=== PATIENT | female | born 1940 | race Caucasian/White ===

== ENCOUNTER → 2017-10-22 | Day surgery (SDC) | payer MEDICARE ==
[2017-10-16 08:58] VITALS: Ht 152.4 cm; Wt 68.2 kg
[~2017-10-22] VITALS: Ht 152.4 cm; Wt 68.2 kg
[~2017-10-22] MED LIST: ASPCH81X PO; ATROPINE SULFATE 0.1 MG/ML 5ML SYR IV PRN; CHOL2000 PO; CITA20TA4 PO; COEN50CA22 PO; EpHEDrine SULFATE INJ 50 MG/ML AMP IV PRN; LEVO25TA5 PO; LIDOCAINE HCL 2% 2 ML VIAL (20MG/ML) ONE; LOSA50TA6 PO; MIDAZOLAM HCL 1 MG/ML 2ML VIAL ONE; MISCCAP80 PO; NAPR1TAB9 PO; ONDANSETRON INJ 2 MG/ML 2 ML VIAL ONE; PROPOFOL IV EMULSION 10 MG/ML 20 ML VIAL IV ONE; SODIUM CHLORIDE 0.9% 500ML 500 ML IV ONE
--- NOTE | 2017-10-22 08:34 | Endo History and Physical ---
History & Physical Date of Service: Oct 22, 2017. Chief Complaint: esophageal dysphagia Referring Physician: Dr. Izabela Sanders History of Present Illness 77 yo with history of Elvis and presents with solid food intermittent dysphagia for EGD. Past Medical History Reflux Past Surgical History Hx Cardiac Surgery: No Hx Internal Defibrillator: No Hx Pacemaker: No Hx Abdominal Surgery: Yes (D&C'S, HYSTERECTOMY, ELSA, HIATAL HERNIA REPAIR) Hx of Implantable Prosthesis: No Hx Post-Op Nausea and Vomiting: No Hx Cancer Surgery: No Hx Thoracic Surgery: No Hx Orthopedic: Yes (RT/LEFT FOOT/TOE SURGERY(HARDWARE PRESENT)) Hx Urinary Tract Surgery: No Family History Colon CA, Esophogeal CA Social History Smoking Status: Former Smoker Hx Substance Use: No Hx Alcohol Use: No Allergies Coded Allergies: Acetaminophen (Verified Adverse Reaction, Unknown, N&V, 10/16/17) Codeine (Verified Adverse Reaction, Unknown, nausea, 10/16/17) Hydrocodone (Verified Adverse Reaction, Unknown, N&V, 10/16/17) Current Medications Reported Home Medications Medications Dose Route/Sig Max Daily Dose Days Date Category Aspirin Chewable (Aspirin) 81 Mg Chew 81 Mg PO QAM 10/16/17 Reported Aleve (Naproxen) 220 Mg Tab 220 Mg PO DIRECTED PRN 10/16/17 Reported Probiotic (Probiotic Product) 1 Cap Cap 1 Cap PO QAM 10/16/17 Reported Coq10 (Coenzyme Q10 (Ubidecarenone)) 50 Mg Cap 1 Cap PO QAM 10/16/17 Reported Vitamin D3 (Cholecalciferol) 2,000 Unit Cap 1 Cap PO QAM 10/16/17 Reported Levothyroxine Sodium 25 Mcg Tab 1 Tab PO QAM 10/16/17 Reported Citalopram Hydrobromide 20 Mg Tab 1 Tab PO QAM 10/16/17 Reported Cozaar (Losartan Potassium) 50 Mg Tab 50 Mg PO QAM 10/16/17 Reported Vital Signs Weight (Kilograms): 68.18 Height (Feet): 5 Height (Inches): 0 Date Time Temp Pulse Resp B/P (MAP) Pulse Ox O2 Delivery O2 Flow Rate FiO2 10/22/17 08:27 36.7 61 18 161/88 (112) 96 Room Air Physical Exam General Appearance: WD/WN, no apparent distress Respiratory/Chest: Respiratory effort: no dyspnea Auscultation: breath sounds normal Cardiovascular: Apical Impulse: not displaced Heart Auscultation: RRR, normal S1, normal S2 Abdomen: Bowel Sounds: normal Inspection & Palpation: soft, non-distended Assessment and Plan 77 yo presents for EGD for dysphagia
--- NOTE | 2017-10-22 08:56 | GI REPORT ---
Procedure Date: 10/22/2017 8:42 AM Procedure: Upper GI endoscopy Indications: Dysphagia Medicines: Monitored Anesthesia Care Complications: No immediate complications. Estimated blood loss: None. Estimated Blood Loss: Estimated blood loss: none. Procedure: Pre-Anesthesia Assessment: - Pre-Anesthesia Assessment: - Prior to the procedure, a History and Physical was performed, and patient medications, allergies and sensitivities were reviewed. The patient's tolerance of previous anesthesia was reviewed. Please see [facility] for complete details. - The risks and benefits of the procedure and the sedation options and risks were discussed with the patient. All questions were answered and informed consent was obtained. - Patient identification and proposed procedure were verified prior to the procedure by the physician and the nurse. The procedure was verified in the pre-procedure area in the procedure room. After obtaining informed consent, the endoscope was passed carefully and meticuously under direct vision and only advanced when the lumen was clearly identified, C02 insuflation was utilized throughout the entirity of the procedure. Throughout the procedure, the patient's blood pressure, pulse, and oxygen saturations were monitored continuously. After obtaining informed consent, the endoscope was passed under direct vision. Throughout the procedure, the patient's blood pressure, pulse, and oxygen saturations were monitored continuously. The On-site loaner was introduced through the mouth, and advanced to the second part of duodenum. The upper GI endoscopy was accomplished without difficulty. The patient tolerated the procedure well. Findings: A small hiatal hernia was present. The lower third of the esophagus was tortuous. A TTS dilator was passed through the scope. Dilation with a 12-13.5-15 mm balloon dilator was performed to 15 mm. The dilation site was examined and showed mild improvement in luminal narrowing. The entire examined stomach was normal. The examined duodenum was normal. Impression: - Small hiatal hernia. - Tortuous esophagus. - Normal stomach. - Normal examined duodenum. - No specimens collected. Recommendation: - Discharge patient to home (with escort). - Return to referring physician. - Dysphagia may be more of a motility/tortuous anatomy eitology. The patient reported Elvis History was not obvious - Continue present medications. Glen Bennett MD 10/22/2017 8:56:15 AM This report has been signed electronically. Note Initiated On: 10/22/2017 8:42 AM I attest to the content of the Intraoperative Record and orders documented therein, exceptions below
--- NOTE | 2017-10-22 09:02 | Discharge Instructions ---
Endoscopy Patient Instructions Date / Procedure(s) Performed Oct 22, 2017. EGD Allergy Information Coded Allergies: Acetaminophen (Verified Adverse Reaction, Unknown, N&V, 10/16/17) Codeine (Verified Adverse Reaction, Unknown, nausea, 10/16/17) Hydrocodone (Verified Adverse Reaction, Unknown, N&V, 10/16/17) Discharge Date / Findings Oct 22, 2017. Mildly tortuous esophagus Dilation performed Swallowing issues may be post surgery related, motility related, or age related. No worrisome findings such as mass or inflammation Continue current medications Medication Instructions Stopped Medication(s): Patient was told to take 3 pills this am but she didn't take anything yet. Provider Instructions Activity Restrictions - No exercising or heavy lifting for 24 hours. - Do not drink alcohol the day of the procedure. - Do not drive a car or operate machinery until the day after the procedure. - Do not make any important decisions or sign important papers in 24 hours after the procedure. Following Day: - Return to full activity which may include returning to work/school. Diet Start your diet with liquids and light foods (jello, soup, juice, toast). Then eat your usual diet if not nauseated. Treatment For Common After Affects For mild abdominal pain, bloating, or excessive gas: - Rest - Eat lightly - Lie on right side Follow-Up Information Follow-up with Dr. Izabela Sanders as scheduled Anesthesia Information What You Should Know You have had a procedure that required some medicine to reduce anxiety and discomfort. This treatment is called moderate sedation. After receiving the treatment, you may be sleepy, but you will be able to breathe on your own. The effects of the treatment may last for several hours. Follow these instructions along with Activity/Diet recommendations noted above: * Do NOT do anything where dizziness or clumsiness would be dangerous. * Rest quietly at home today, then you can be up and about tomorrow. * Have a responsible person stay with you the rest of today. * You may have had an I.V. today. If so, you may take the dressing off later today. Recommendations Call your doctor if: * Trouble breathing * Continuous vomiting for more than 24 hours * Temperature above 101 degrees * Severe abdominal pain or bloating * Pain not relieved by pain medicine ordered * There is increased drainage or redness from any incision * A large amount of rectal bleeding greater than 2-3 tablespoons. (If you had a polyp/s removed or have hemorrhoids, a small amount of blood - from the rectum is to be expected.) * You have any unanswered questions or concerns. IN THE EVENT OF A SERIOUS EMERGENCY, GO TO THE NEAREST EMERGENCY ROOM Your discharge instructions were prepared by provider Glen Bennett. Patient Instructions Signature Page Catarinalisa Flanneryis Patient (or Guardian) Signature/Date: I have read and understand the instructions given to me by my caregivers. Caregiver/RN/Doctor Signature/Date: The above-named patient and/or guardian has received patient instructions on this date. + Original Patient Signature Page (only) stays with chart. Please make copy for patient.
[2017-10-22 09:25] VITALS: BP 140/68; PULSE 59; O2SAT 97
--- NOTE | 2017-10-22 09:35 | Anesthesiology Progress Note ---
Anesthesia Post Op Note Date & Time Oct 22, 2017 at 09:34 Vital Signs Pain Intensity: 0 Vital Signs Past 12 Hours Date Time Temp Pulse Resp B/P (MAP) Pulse Ox O2 Delivery O2 Flow Rate FiO2 10/22/17 09:25 59 18 140/68 (92) 97 Room Air 10/22/17 09:15 56 18 125/71 (89) 96 Room Air 10/22/17 09:02 36.5 59 18 112/55 (74) 96 Room Air 10/22/17 08:27 36.7 61 18 161/88 (112) 96 Room Air Notes Mental Status: alert / awake / arousable, participated in evaluation Pt Amnestic to Procedure: Yes Nausea / Vomiting: adequately controlled Pain: adequately controlled Airway Patency, RR, SpO2: stable & adequate BP & HR: stable & adequate Hydration State: stable & adequate Anesthetic Complications: no major complications apparent
== END | disposition home or self-care (01) ==
LOC: C.GI 07:36
PROVIDERS: ATTEND Internal Medicine
DX: R13.10 Dysphagia, unspecified (principal); K44.9 Diaphragmatic hernia without obstruction or gangrene; I10 Essential (primary) hypertension; F32.9 Major depressive disorder, single episode, unspecified; E03.9 Hypothyroidism, unspecified; Z90.710 Acquired absence of both cervix and uterus; Z90.49 Acquired absence of other specified parts of digestive tract; Z98.890 Other specified postprocedural states; Z79.82 Long term (current) use of aspirin; Z88.6 Allergy status to analgesic agent; K22.8 Other specified diseases of esophagus; Z79.899 Other long term (current) drug therapy; Z86.711 Personal history of pulmonary embolism; Z87.891 Personal history of nicotine dependence; Z80.0 Family history of malignant neoplasm of digestive organs

== ENCOUNTER → 2018-03-05 | Day surgery (SDC) | payer MEDICARE ==
[2018-02-19 11:15] VITALS: Ht 151.1 cm; Wt 69.5 kg
[~2018-03-05] VITALS: Ht 151.1 cm; Wt 69.5 kg
[~2018-03-05] MED LIST changes: +ACETAMINOPHEN 325 MG TAB PO PRN; +EpINEphrine INJ 1MG/ML AMP 1 MG/ML AMP ONE; +LACTATED RINGER'S 1000ML 500 ML IV SCH; +LIDOCAINE 3.5% OPH GEL PER APPLICATION CHARGE ONE; +LIDOCAINE HCL 1% MPF 2 ML VIAL ONE; -LIDOCAINE HCL 2% 2 ML VIAL (20MG/ML) ONE; -ONDANSETRON INJ 2 MG/ML 2 ML VIAL ONE; +POVIDONE-IODINE OP SOLN 30 ML BTL ONE; +PROPARACAINE 0.5% OP SOLN PER DROP CHARGE OPR SCH; -PROPOFOL IV EMULSION 10 MG/ML 20 ML VIAL IV ONE; -SODIUM CHLORIDE 0.9% 500ML 500 ML IV ONE; +TOBRAMYCIN/DEXAMETHASONE OPH OINT PER APPLN CHARGE ONE
[2018-03-05] MEDS: PHENYLEPHRINE HCL 2.5% OP SOLN PER DROP CHARGE OPR SCH ×2 (08:51→08:56)
[2018-03-05] MEDS: TROPICAMIDE 1% OP SOLN PER DROP CHARGE OPR SCH ×2 (08:52→08:57)
[2018-03-05] MEDS: CYCLOPENTOLATE HCL 1% OP SOLN PER DROP CHARGE OPR SCH ×2 (08:53→08:58)
[2018-03-05] MEDS: GATIFLOXACIN OP SOLN PER DROP CHARGE OPR SCH ×2 (08:55→09:05)
[2018-03-05] MEDS: KETOROLAC 0.5% OP SOLN PER DROP CHARGE OPR SCH ×2 (08:59→09:56)
--- NOTE | 2018-03-05 09:15 | History & Physical Bridge - [place] ---
H&P Re-Evaluation Bridge Note: I have examined the patient, reviewed the History & Physical and in the interval since the performance of the History & Physical I have noted the following changes of clinical significance: No changes noted
--- NOTE | 2018-03-05 10:02 | [facility] Operative Report ---
Operative Report Date of Service Mar 05, 2018. Operative Report 1. PREOPERATIVE DIAGNOSIS: Cataract of the right eye. 2. POSTOPERATIVE DIAGNOSIS: Same. 3. PROCEDURE: Phacoemulsification with intraocular lens implantation of the right eye. SURGEON: Dr. West Camejo. ANESTHESIA: Topical Lidocaine gel, 1% Non- Preserved intracameral Lidocaine, and monitored intravenous sedation. INDICATIONS FOR THE PROCEDURE: The patient is a 77 - year-old female with a history of cataract of the right eye causing significant visual impairment. The details of the proposed procedure were explained to the patient who asked appropriate questions and following discussion of all risks, benefits and alternatives agreed to have the procedure done. 4. OPERATION AND FINDINGS: DESCRIPTION OF PROCEDURE: After informed consent was obtained, the patient was brought to the Operating Room at the [facility]. The patient was placed in a supine position and then the right eye was prepped and draped in the usual sterile fashion for intraocular surgery. A drop of topical Lidocaine gel was placed in the operative eye. A wire lid speculum was then placed in the fornices. A corneal paracentesis was then created temporally. The Non-Preserved Lidocaine was then instilled into the anterior chamber. The anterior chamber was then pressurized with viscoelastic. A 2.0 mm clear corneal incision was then created temporally. A cystotome was inserted into the anterior chamber and used to create a tear in the anterior lens capsule. This capsular tear was then used to create a small flap and the flap was dragged in a counterclockwise direction in order to create a continuous curvilinear capsulorrhexis. Hydrodissection was accomplished with balanced salt solution. Phacoemulsification of the lens nucleus was then performed in a standard [id number] technique. The phaco time was 17 seconds with an average power of 14 %. The remaining cortical material was removed using irrigation aspiration. The capsular bag was then filled with viscoelastic. A [employer] Lomb MI60L +22.5 diopters lens was then loaded into the injector and injected into the capsular bag. The remaining viscoelastic was removed with the irrigation aspiration handpiece. The wound was hydrated and then checked and found to be watertight. The intraocular pressure was checked and found to be adequate. The wire lid speculum was removed and the patient's face was cleaned and dried. TobraDex ointment was placed in the inferior fornix. The patient was discharged to the Recovery Room having tolerated the procedure well. There were no complications. The patient will be seen tomorrow in the office for follow-up. I attest to the content of the Intraoperative Record and any orders documented therein. Any exceptions are noted below.
--- NOTE | 2018-03-05 10:02 | Discharge Instructions-SurgCtr ---
Discharge Instructions Date of Service Mar 05, 2018. Visit Reason for Visit: Cataract Right Eye Discharge Discharge Diagnosis / Problem: cataract Discharge Goals Goal(s): Improve function Activity Recommendations Activity Limitations: per Instructions/Follow-up section Anesthesia . Post Anesthesia Instructions: If you have had General Anesthesia or IV Sedation: * Do not drive today. * Resume driving when surgeon permits. * Do not make important decisions or sign legal documents today. * Call surgeon for: 1. Temperature elevations greater than 101 degrees F. 2. Uncontrollable pain. 3. Excessive bleeding. 4. Persistent nausea and vomiting. 5. Medication intolerance (nausea, vomiting or rash). * For nausea and vomiting use only clear liquids such as: tea, soda, bouillon until nausea subsides, then gradually increase diet as tolerated. * If you have any concerns or questions, call your surgeon's office. If physician is unavailable and it is an emergency, call 911 or go to the nearest emergency room. . Diet Recommendations Home Diet: resume previous diet Procedures Procedures Performed: Right Cataract Phacoemulsification With Intraocular Lens Implant Pending Studies Studies pending at discharge: no Medical Emergencies . Who to Call and When: Medical Emergencies: If at any time you feel your situation is an emergency, please call 911 immediately. . Non-Emergent Contact Non-Emergency issues call your: Vocational Training Instructor . . "Provider Documentation" section prepared by West Camejo. .
[2018-03-05 10:09] VITALS: TEMP 36.3
--- NOTE | 2018-03-05 10:10 | Anesthesia Progress Nt - [facility] ---
Anesthesia Post Op Note Date & Time Mar 05, 2018 at 10:10 Vital Signs Pain Intensity: 0 Vital Signs Past 12 Hours Date Time Temp Pulse Resp B/P (MAP) Pulse Ox O2 Delivery O2 Flow Rate FiO2 03/05/18 08:40 36.7 65 16 142/92 (109) 96 Room Air Notes Mental Status: alert / awake / arousable, participated in evaluation Pt Amnestic to Procedure: Yes Nausea / Vomiting: adequately controlled Pain: adequately controlled Airway Patency, RR, SpO2: stable & adequate BP & HR: stable & adequate Hydration State: stable & adequate Anesthetic Complications: no major complications apparent
[2018-03-05 10:40] VITALS: BP 125/73; PULSE 67; O2SAT 97
== END | disposition home or self-care (01) ==
LOC: X.SURG 08:08
PROVIDERS: ATTEND Ophthalmology
DX: H26.9 Unspecified cataract (principal); I10 Essential (primary) hypertension; M19.90 Unspecified osteoarthritis, unspecified site; Z98.42 Cataract extraction status, left eye; Z79.82 Long term (current) use of aspirin; Z79.899 Other long term (current) drug therapy; Z88.5 Allergy status to narcotic agent; Z86.711 Personal history of pulmonary embolism; Z87.891 Personal history of nicotine dependence

== ENCOUNTER → 2018-03-12 | Outpatient (CLI) | payer MEDICARE ==
[~2018-03-12] MED LIST changes: -ACETAMINOPHEN 325 MG TAB PO PRN; -ATROPINE SULFATE 0.1 MG/ML 5ML SYR IV PRN; -EpHEDrine SULFATE INJ 50 MG/ML AMP IV PRN; -EpINEphrine INJ 1MG/ML AMP 1 MG/ML AMP ONE; -LACTATED RINGER'S 1000ML 500 ML IV SCH; -LIDOCAINE 3.5% OPH GEL PER APPLICATION CHARGE ONE; -LIDOCAINE HCL 1% MPF 2 ML VIAL ONE; -MIDAZOLAM HCL 1 MG/ML 2ML VIAL ONE; -POVIDONE-IODINE OP SOLN 30 ML BTL ONE; -PROPARACAINE 0.5% OP SOLN PER DROP CHARGE OPR SCH; -TOBRAMYCIN/DEXAMETHASONE OPH OINT PER APPLN CHARGE ONE
--- NOTE | 2018-03-12 09:10 | DIAGNOSTIC IMAGING REPORT ---
GI SERIES W/AIR ROUTINE CLINICAL HISTORY: 77 years-old Female presenting with S/P GASTRIC SURGERY. TECHNIQUE: A standard air contrast upper GI series was performed. Spot images of the esophagus and stomach were obtained in multiple obliquities both upright and prone. COMPARISON: 08/07/2016. FINDINGS: The patient swallowed barium without difficulty. The esophagus is structurally normal without evidence of intrinsic or extrinsic mass. The esophageal mucosal pattern is normal. Esophageal dysmotility evidenced by tertiary contractions. Significant gastroesophageal reflux was elicited by having the patient perform the Valsalva maneuver. The gastroesophageal junction was located above the diaphragm with a recurrent small hiatal hernia evident. The stomach is otherwise normal in configuration and demonstrates normal distensibility. No mass or ulceration is identified. There was no evidence of gastritis. The duodenal bulb and sweep are unremarkable. Fluoroscopy dosage (mGy): Not available. Fluoroscopy time: 1.5 minutes. Number or time of fluoroscopic spot images: 25. IMPRESSION: 1. Recurrent small hiatal hernia. 2. Significant gastroesophageal reflux. 3. 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 Electronically signed by: Souleymane Palomino M.D. 03/12/2018 9:08 AM Dictated Date/Time: 03/12/2018 9:07 AM
== END | disposition home or self-care (01) ==
LOC: C.RAD 08:09
PROVIDERS: ATTEND Surgery
DX: Z98.890 Other specified postprocedural states (principal); K21.9 Gastro-esophageal reflux disease without esophagitis; K22.4 Dyskinesia of esophagus; K44.9 Diaphragmatic hernia without obstruction or gangrene

== ENCOUNTER 2022-10-05 16:09 | Observation (INO) ==
--- NOTE | 2022-10-05 16:42 | Emergency Department Note ---
Impression & Plan Chest pain, Abnormal EKG ED Provider Note NAME: YESSICA NAVA AGE: 82 SEX: F : 1940 ARRIVES VIA: Ambulance INFORMANT: Patient, the patient's family member ED PROVIDER(S): Álvaro Hennessy DO CHIEF COMPLAINT: Chest pain HPI: The patient is an 82-year-old female who does have a history of esophageal problems but also has a history of hypertension. The patient presented to the emergency department for an evaluation of chest pain. The patient was at her primary care physician's office today when she developed chest pain. Upon furt her questioning the patient admitted that she was having chest pain rating to her shoulder which she describes as a sharp squeezing pain. The patient's had ongoing symptoms frequently. This is the first time the family member was made aware of it. The patient was given aspirin and nitroglycerin with relief of her pain and then she was sent to the emergency department for further evaluation as well as possible admission. ROS: See above HPI for pertinent positives & negatives. A total of 10 systems reviewed and were otherwise negative. PAST MEDICAL HISTORY: See Below PAST SURGICAL HISTORY: See Below FAMILY HISTORY: See Below SOCIAL HISTORY: See Below HOME MEDICATIONS: See Below ALLERGIES: See Below VITALS: See Below PHYSICAL EXAMINATION: GENERAL: Patient is awake alert in no acute distress patient is resting comfortably and showing no signs of anxiety EYES: The conjunctivae are clear. The pupils are round and reactive. EARS, NOSE, MOUTH AND THROAT: The nose is without any evidence of any deformity. NECK: The neck is nontender and supple. RESPIRATORY: Normal respiratory effort is noted there is no evidence of wheezing rhonchi or rales CARDIOVASCULAR: Regular rate and rhythm noted there no murmurs rubs or gallops normal S1 normal S2. GASTROINTESTINAL: The abdomen is soft. Abdomen is nontender. MUSCULOSKELETAL/EXTREMITIES: There is no evidence of gross deformity full range of motion is noted in the hips and shoulders. SKIN: There is no obvious evidence of any rash. There are no petechiae, pallor or cyanosis noted. NEUROLOGIC: Patient is awake alert and oriented x3 MEDICAL DECISION MAKING: The patient is an 82-year-old female who presented to the emergency department directly from her doctor's office for an evaluation of chest pain. The patient noticed epigastric and lower chest pain which is very tight and radiates to her left shoulder. This was thought to be consistent with unstable angina according to the note from the doctor's office. She was treated with aspirin and nitroglycerin. She was feeling much better on reevaluation. The patient was sent to the emergency department specifically for further evaluation as well as possible inpatient management. I discussed the patient's laboratory and radiographic studies with her and her daughter. I discussed the limitations of the emergency department work-up for chest pain with him. Given her age and comorbidities I do feel the patient may be a better candidate for inpatient management and work-up. For this reason I [facility] have agreed to evaluate the patient in the emergency department for further management and disposition. Triage Nursing notes reviewed. Prior medical records reviewed Vital Signs: reviewed and remarkable for elevated blood pressure and bradycardia. Differential diagnosis: Cardiac ischemia, aortic dissection, pulmonary embolism, pneumothorax, pneumonia, pericarditis, myocarditis, esophageal rupture, GERD, cholecystitis, pancreatitis, musculoskeletal, as well as other pathologies. ER treatment provided: See below Diagnostics interpreted by me: ECG: EKG was obtained in the emergency department. My interpretation is sinus bradycardia 56 bpm. There is no ectopy. There is no acute ST segment abnormalities noted. This was compared to a tracing from February 04, 2020. No changes were noted There is an EKG that accompanied the patient. This was from the office. My interpretation is normal sinus rhythm at 60 bpm. There is no ectopy. There was ST segment depressions noted in the inferior and lateral leads. The ST segment depression was new compared to the previous tracing. A prehospital EKG was also reviewed. My interpretation is sinus rhythm at 60 bpm. There is no ectopy. There was still persistent ST depressions noted in the lower lateral leads otherwise no change from previous. Cardiac Monitoring: An order was placed for continuous cardiac monitoring. The monitor shows a rate of 57 bpm with sinus bradycardia. Laboratory studies: As stated above and show below. Imaging studies: See below. Radiographic imaging was reviewed by myself Consultation(s): I discussed this case with Irena who [facility] Past Med/Surg History Medical History (Updated 10/05/22 @ 19:14 by Roxy Martin PA-C) Degenerative arthritis of knee, bilateral Depression Dysphagia GERD (gastroesophageal reflux disease) hx-not since lap elvis Hammer toes of both feet no sx. 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 "don't have this anymore since I had the teeth pulled on the bottom." no locking Surgical History H/O foot surgery R/L History of bunionectomy History of carpal tunnel release left History of cataract surgery bilat History of cholecystectomy History of colonoscopy History of dilatation and curettage X MULTIPLE History of esophagogastroduodenoscopy (EGD) X MULTIPLE History of hysterectomy TOTAL History of tooth extraction 2 dental implants bottom Pilonidal cyst REMOVAL Status post laparoscopic Elvis fundoplication Family History Aunt Esophageal cancer Grandmother (Maternal) Diabetes Social History Smoking Status: Former smoker Second Hand Exposure: No; Hx Alcohol Use: Yes Alcohol type: other Hx Substance Use: No Preferred Language: Kiswahili Communication Ability: Effective Analyst Microbiology Lab Required: No Beliefs That Will Affect Care: None Current Living Situation: Alone Feels Safe at Home: Yes Assistive Devices: None Allergies Allergies Allergy/AdvReac Type Severity Reaction Status Date / Time codeine AdvReac Unknown nausea Verified 10/05/22 18:55 hydrocodone AdvReac Unknown N&V Verified 10/05/22 18:55 prednisone AdvReac Unknown Gastrointestinal Verified 10/05/22 18:55 Upset tramadol AdvReac Unknown Nausea Verified 10/05/22 18:55 Home Meds Home Medications Medication Instructions Recorded Confirmed amlodipine 2.5 mg tablet 2.5 mg PO HS 05/27/19 10/05/22 cholecalciferol (vitamin D3) 50 2,000 unit PO QAM 05/27/19 10/05/22 mcg (2,000 unit) capsule (Vitamin D3) coQ10 (ubiquinol) 100 mg capsule 100 mg PO QAM 05/27/19 10/05/22 dicyclomine 10 mg capsule 10 mg PO QID PRN Abdominal Pain 05/27/19 10/05/22 docusate sodium 100 mg capsule 100 mg PO BID 05/27/19 10/05/22 (Stool Softener) levothyroxine 25 mcg capsule 25 - 50 mcg PO QAM 05/27/19 10/05/22 citalopram 10 mg tablet 10 mg PO QAM 12/31/20 10/05/22 cyanocobalamin (vitamin B-12) 250 250 mcg PO QAM 12/31/20 10/05/22 mcg tablet losartan 25 mg tablet 25 mg PO DAILY 10/05/22 10/05/22 ondansetron 4 mg disintegrating 4 mg PO Q6H PRN Nausea 10/05/22 10/05/22 tablet polyethylene glycol 3350 17 17 g PO DAILY 10/05/22 10/05/22 gram/dose oral powder (Miralax) simethicone 40 mg/0.6 mL oral See Rx Instructions .Route .COMPLEX 10/05/22 10/05/22 drops,suspension vitamins A and D 1 cap PO DAILY 10/05/22 10/05/22 Results & Data (ED) Vital Signs Vital Signs - 24 hr 10/05/22 16:14 10/05/22 16:21 10/05/22 16:21 Temperature 36.5 C Temperature Source Oral Pulse Rate 56 L Pulse Rate [Apical] 55 L Pulse Rate from SpO2 Sensor Pulse Rhythm Regular Pulse Rhythm [Apical] Regular Pulse Strength Normal Pulse Strength [Apical] Normal Respiratory Rate 21 17 Respiratory Effort / Characteristics Non-Labored Non-Labored Respiratory Depth Normal Normal Respiratory Pattern Regular Regular Blood Pressure 133/81 Blood Pressure [Right Arm] 133/81 Blood Pressure Mean 98 Blood Pressure Mean [Right Arm] 98 Pulse Oximetry 97 97 Oxygen Delivery Method Room Air Room Air Room Air Oxygen Flow Rate 96 Sepsis Recent Fever Within 48 Hours No Sepsis New/Unexplained Change in Mental Status N/A Sepsis Action Taken by Nursing No Action Required 10/05/22 16:29 10/05/22 16:54 10/05/22 16:27 Temperature Temperature Source Pulse Rate 53 L 53 L Pulse Rate [Apical] Pulse Rate from SpO2 Sensor 53 L Pulse Rhythm Pulse Rhythm [Apical] Pulse Strength Pulse Strength [Apical] Respiratory Rate 17 Respiratory Effort / Characteristics Respiratory Depth Respiratory Pattern Blood Pressure Blood Pressure [Right Arm] Blood Pressure Mean Blood Pressure Mean [Right Arm] Pulse Oximetry 94 Oxygen Delivery Method Room Air Oxygen Flow Rate 97 Sepsis Recent Fever Within 48 Hours Sepsis New/Unexplained Change in Mental Status Sepsis Action Taken by Nursing 10/05/22 16:30 10/05/22 16:30 10/05/22 17:00 Temperature Temperature Source Pulse Rate 55 L Pulse Rate [Apical] Pulse Rate from SpO2 Sensor 54 L Pulse Rhythm Pulse Rhythm [Apical] Pulse Strength Pulse Strength [Apical] Respiratory Rate 21 Respiratory Effort / Characteristics Respiratory Depth Respiratory Pattern Blood Pressure 123/66 130/68 Blood Pressure [Right Arm] Blood Pressure Mean 85 88 Blood Pressure Mean [Right Arm] Pulse Oximetry 96 Oxygen Delivery Method Oxygen Flow Rate Sepsis Recent Fever Within 48 Hours Sepsis New/Unexplained Change in Mental Status Sepsis Action Taken by Nursing 10/05/22 17:00 10/05/22 17:30 10/05/22 17:30 Temperature Temperature Source Pulse Rate 50 L 50 L Pulse Rate [Apical] Pulse Rate from SpO2 Sensor 50 L 50 L Pulse Rhythm Pulse Rhythm [Apical] Pulse Strength Pulse Strength [Apical] Respiratory Rate 17 16 Respiratory Effort / Characteristics Respiratory Depth Respiratory Pattern Blood Pressure 125/66 Blood Pressure [Right Arm] Blood Pressure Mean 85 Blood Pressure Mean [Right Arm] Pulse Oximetry 98 98 Oxygen Delivery Method Oxygen Flow Rate Sepsis Recent Fever Within 48 Hours Sepsis New/Unexplained Change in Mental Status Sepsis Action Taken by Nursing 10/05/22 18:00 10/05/22 18:00 10/05/22 18:38 Temperature Temperature Source Pulse Rate 54 L Pulse Rate [Apical] Pulse Rate from SpO2 Sensor 54 L 54 L Pulse Rhythm Pulse Rhythm [Apical] Pulse Strength Pulse Strength [Apical] Respiratory Rate 20 Respiratory Effort / Characteristics Respiratory Depth Respiratory Pattern Blood Pressure 132/65 Blood Pressure [Right Arm] Blood Pressure Mean 87 Blood Pressure Mean [Right Arm] Pulse Oximetry 98 96 Oxygen Delivery Method Oxygen Flow Rate Sepsis Recent Fever Within 48 Hours Sepsis New/Unexplained Change in Mental Status Sepsis Action Taken by Nursing 10/05/22 19:00 Temperature Temperature Source Pulse Rate Pulse Rate [Apical] Pulse Rate from SpO2 Sensor 54 L Pulse Rhythm Pulse Rhythm [Apical] Pulse Strength Pulse Strength [Apical] Respiratory Rate Respiratory Effort / Characteristics Respiratory Depth Respiratory Pattern Blood Pressure Blood Pressure [Right Arm] Blood Pressure Mean Blood Pressure Mean [Right Arm] Pulse Oximetry 98 Oxygen Delivery Method Oxygen Flow Rate Sepsis Recent Fever Within 48 Hours Sepsis New/Unexplained Change in Mental Status Sepsis Action Taken by [facility] Medications Current Medication List: was personally reviewed by me Laboratory Data Attestation: I reviewed the patient's lab results. 10/05/22 16:16 10/05/22 16:16 Lab Results 10/05/22 10/05/22 10/05/22 Range/Units 16:16 16:16 16:16 WBC 6.52 (4.8-10.8) K/ul RBC 4.37 (4.20-5.40) M/uL Hgb 13.3 (12.0-16.0) g/dl Hct 39.6 (37.0-47.0) % MCV 90.6 (80.0-100.0) fL MCH 30.4 (25.0-34.0) pg MCHC 33.6 (32.0-36.0) g/dL RDW Std Deviation 43.2 (36.4-46.3) fL RDW Coeff of Tangela 13.2 (11.5-14.5) % Plt Count 227 (130-400) K/uL MPV 10.0 (9.4-12.4) fL Immature Gran % (Auto) 0.2 % Neut % (Auto) 47.2 % Lymph % (Auto) 38.2 % Prentiss % (Auto) 10.3 % Eos % (Auto) 2.9 % Baso % (Auto) 1.2 % Neut # (Auto) 3.08 (1.40-6.50) K/uL Lymph # (Auto) 2.49 (1.2-3.4) K/uL Prentiss # (Auto) 0.67 H (0.11-0.59) K/uL Eos # (Auto) 0.19 (0-0.50) K/uL Baso # (Auto) 0.08 (0-0.2) K/uL Immature Gran # (Auto) 0.01 (0.01-0.20) K/uL PT 10.8 (9.0-12.0) Seconds INR 1.0 (0.9-1.1) APTT 25.3 (21.0-31.0) Seconds PTT Ratio 0.9 Sodium 139 (136-145) mmol/L Potassium 4.1 (3.5-5.1) mmol/L Chloride 105 (98-107) mmol/L Carbon Dioxide 27 (21-32) mmol/L Anion Gap 7 (3-11) BUN 13 (6-23) mg/dl Creatinine 0.95 (0.6-1.2) mg/dl Est Cr Clr Drug Dosing 37.3 ml/min Est GFR ( Amer) 64.2 ml/min Est GFR (Non-Af Amer) 55.4 ml/min BUN/Creatinine Ratio 13.7 (10-20) Glucose 100 H (70-99(Fasting)) mg/dl Calcium 8.7 (8.5-10.1) mg/dl Total Bilirubin 0.4 (0.2-1.0) mg/dl AST 18 (13-39) U/L ALT 13 (7-52) U/L Alkaline Phosphatase 77 (34-104) U/L Troponin I High Sens 3.9 (0-14) pg/ml Total Protein 6.7 (6.0-8.3) gm/dl Albumin 3.9 (3.4-5.0) gm/dl Globulin 2.8 (2.5-4.0) gm/dl Albumin/Globulin Ratio 1.4 (0.9-2) Lipase 11 (11-82) U/L SARS-CoV-2, RNA, NAAT (NEGATIVE) 10/05/22 Range/Units 16:56 WBC (4.8-10.8) K/ul RBC (4.20-5.40) M/uL Hgb (12.0-16.0) g/dl Hct (37.0-47.0) % MCV (80.0-100.0) fL MCH (25.0-34.0) pg MCHC (32.0-36.0) g/dL RDW Std Deviation (36.4-46.3) fL RDW Coeff of Tangela (11.5-14.5) % Plt Count (130-400) K/uL MPV (9.4-12.4) fL Immature Gran % (Auto) % Neut % (Auto) % Lymph % (Auto) % Prentiss % (Auto) % Eos % (Auto) % Baso % (Auto) % Neut # (Auto) (1.40-6.50) K/uL Lymph # (Auto) (1.2-3.4) K/uL Prentiss # (Auto) (0.11-0.59) K/uL Eos # (Auto) (0-0.50) K/uL Baso # (Auto) (0-0.2) K/uL Immature Gran # (Auto) (0.01-0.20) K/uL PT (9.0-12.0) Seconds INR (0.9-1.1) APTT (21.0-31.0) Seconds PTT Ratio Sodium (136-145) mmol/L Potassium (3.5-5.1) mmol/L Chloride (98-107) mmol/L Carbon Dioxide (21-32) mmol/L Anion Gap (3-11) BUN (6-23) mg/dl Creatinine (0.6-1.2) mg/dl Est Cr Clr Drug Dosing ml/min Est GFR ( Amer) ml/min Est GFR (Non-Af Amer) ml/min BUN/Creatinine Ratio (10-20) Glucose (70-99(Fasting)) mg/dl Calcium (8.5-10.1) mg/dl Total Bilirubin (0.2-1.0) mg/dl AST (13-39) U/L ALT (7-52) U/L Alkaline Phosphatase (34-104) U/L Troponin I High Sens (0-14) pg/ml Total Protein (6.0-8.3) gm/dl Albumin (3.4-5.0) gm/dl Globulin (2.5-4.0) gm/dl Albumin/Globulin Ratio (0.9-2) Lipase (11-82) U/L SARS-CoV-2, RNA, NAAT NEGATIVE (NEGATIVE) Administered Medications Amlodipine Besylate (Amlodipine Besylate 5 Mg Tab) 2.5 mg PO HS SISI Stop: 11/04/22 20:59 Last Admin: 10/05/22 22:04 Dose: 2.5 mg Documented By: CR Docusate Sodium (Docusate Sodium 100 Mg Cap) 100 mg PO BID SISI Stop: 11/04/22 20:59 Last Admin: 10/05/22 22:04 Dose: 100 mg Documented By: CR Heparin Sodium (Porcine) (Heparin Sod 5,000 Unit/0.5 Ml Vial) 5,000 units SQ Q12 SISI Stop: 11/04/22 20:59 Last Admin: 10/05/22 22:04 Dose: 5,000 units Documented By: CR Imaging Data Attestation: I personally reviewed and interpreted this imaging study as follows: My Impression: 1 view chest x-ray was obtained in the emergency department. My interpretation is no free air, no definite for trait, see report below Radiologist's Impression: Chest X-Ray 10/05/22 16:31 XR chest 1V portable HISTORY: 82 years-old Female Chest pain, nonspecific acute chest pain COMPARISON: 06/30/2011 TECHNIQUE: AP view of the chest FINDINGS: Cardiac mediastinal and hilar silhouettes are unchanged. No pneumothorax, pleural effusion, airspace consolidation or overt pulmonary edema. Degenerative changes of the shoulders and spine. Healed chronic left humeral fracture deformity. IMPRESSION: No acute process. ACT 112: Negative or not required by law. The above report was generated using voice recognition software. It may contain grammatical, syntax or spelling errors. Electronically signed by: Chris Crook M.D. 10/05/2022 5:30 PM Discharge Plan Visit Data Chief Complaint: Chest Pain Stated Complaint: CHEST PAIN ED Provider: Álvaro Hennessy Discharge Problem: Chest pain, Abnormal EKG Patient Disposition: Admitted As Inpatient Discharge Instructions Interventions: ED Discharge Assessment Last Done: 10/05/22 20:29 Chest pain Qualifiers: Chest pain type: unspecified Qualified Code(s): R07.9 - Chest pain, unspecified
[2022-10-05 16:50] LABS: Basophils # (auto) 0.08 K/uL (0-0.2); Basophils % (auto) 1.2 %; Eosinophils # (auto) 0.19 K/uL (0-0.50); Eosinophils % (auto) 2.9 %; Hematocrit (blood only) 39.6 % (37.0-47.0); Hemoglobin 13.3 g/dl (12.0-16.0); Immature Granulocytes # (auto) 0.01 K/uL (0.01-0.20); Immature Granulocytes % (auto) 0.2 %; Lymphocytes # (auto) 2.49 K/uL (1.2-3.4); Lymphocytes % (auto) 38.2 %; Mean Corpuscular Hemoglobin 30.4 pg (25.0-34.0); Mean Corpuscular Hgb Conc 33.6 g/dL (32.0-36.0); Mean Corpuscular Volume 90.6 fL (80.0-100.0); Monocytes # (auto) 0.67 K/uL (0.11-0.59); Monocytes % (auto) 10.3 %; Neutrophils # (auto) 3.08 K/uL (1.40-6.50); Neutrophils % (auto) 47.2 %; Platelet Count 227 K/uL (130-400); RDW Coefficient of Variation 13.2 % (11.5-14.5); RDW Standard Deviation 43.2 fL (36.4-46.3); Red Blood Count 4.37 M/uL (4.20-5.40); White Blood Count 6.52 K/ul (4.8-10.8)
[2022-10-05 17:15] LABS: Albumin Level 3.9 gm/dl (3.4-5.0); Bilirubin,Total 0.4 mg/dl (0.2-1.0); Calcium 8.7 mg/dl (8.5-10.1); Potassium 4.1 mmol/L (3.5-5.1)
[2022-10-05 17:20] LABS: Partial Thromboplastin Ratio 0.9; Partial Thromboplastin Time 25.3 Seconds (21.0-31.0); Prothrombin Time 10.8 Seconds (9.0-12.0)
[2022-10-05 17:21] LABS: Albumin Globulin Ratio 1.4 (0.9-2); BUN Creatinine Ratio 13.7 (10-20); Creatinine Clr Calc Pharmacy 37.3 ml/min; Est GFR (African American) 64.2 ml/min; Est GFR (Non-African American) 55.4 ml/min; Globulin 2.8 gm/dl (2.5-4.0); Total Protein 6.7 gm/dl (6.0-8.3); Troponin I High Sensitivity 3.9 pg/ml (0-14)
--- NOTE | 2022-10-05 17:31 | XRay Report ---
XR chest 1V portable HISTORY: 82 years-old Female Chest pain, nonspecific acute chest pain COMPARISON: 06/30/2011 TECHNIQUE: AP view of the chest FINDINGS: Cardiac mediastinal and hilar silhouettes are unchanged. No pneumothorax, pleural effusion, airspace consolidation or overt pulmonary edema. Degenerative changes of the shoulders and spine. Healed chron ic left humeral fracture deformity. IMPRESSION: No acute process. ACT 112: Negative or not required by law. The above report was generated using voice recognition software. It may contain grammatical, syntax o r spelling errors. Electronically signed by: Chris Crook M.D. 10/05/2022 5:30 PM
--- NOTE | 2022-10-05 19:20 | History & Physical Report ---
Date of Service October 05, 2022 Assessment & Plan (1) Chest pain: (2) Abnormal EKG: (3) Hypertension: (4) Hyperlipidemia: Plan: - Admit to tele for observation for r/o - sent over from cardiology office for concern for Takasubo vs ACS - Trend cardiac biomarkers, initial set was negative at 3.9 - EKG reviewed as above - Check 2 D echo- Her last echo October 2020 shows an LVEF of 55 to 59%, diastolic function is mildly abnormal, mild tricuspid regurg - If negative enzymes can consider a stress test tomorrow morning. - PT/OT consulted - Consult cardiology (5) GERD (gastroesophageal reflux disease): Plan: - Hx of esophageal narrowing and needs for dilations in December 2020 and December 2021 - Pt reports having stomach surgery and hiatal hernia repair in 2014, prior to that severe gerd which is improved at this point - Issues with food getting stuck more recently, also with diarrhea and constipation alternating. Pt with hx of IBS -- likely flared currently due to situational stress with of sister 2 weeks ago - Typically follows with Dr. Salomon for eval - will consult GI for possible EGD due to esophageal narrowing suspected. Pt has not had recent colonoscopy DVT ppx: - teds, scds, heparin subcu CODE: Full code Dispo: From home, likely to remain in the hospital x 1-2 days History of Present Illness Chief Complaint: chest pain Primary Care Provider: Erica Dong, This is an 82-year-old female with PMHx of paroxysmal A-fib, PSVT, HTN, HLD, hypothyroidism, CKD stage III, recent flux esophagitis who presented to her outpatient account information clerk office earlier today for routine follow-up. At the beginning of her appointment she was doing well from a cardiac standpoint. When she moved from chair to bedside exam table she experienced acute left-sided chest pain with radiation into her back and to the left arm. There she was given 2 nitros and 4 baby aspirin which improved her pain. Her blood pressure was stable at that point in time and remained so since being here in the ER. Of note her sister 2 weeks ago and there is some concern for Takotsubo cardiomyopathy versus ACS therefore she was sent over to the ER for further evaluation. Her daughter is present with her, Chris, and helps support the history. She also notes that since staying with her mother for the past 2 weeks she notices issues with her choking on food, and patient feeling as if food is getting stuck in her esophagus. She has previously followed with GI, Dr. Salomon and had EGDs with dilations 2 years in a row with, December 2020 and December 2021. Patient is also experiencing intermittent diarrhea and constipation alternating along with abdominal pain. Currently she does not have any abdominal plaints as today was "a good day". She admits to having a history of IBS in the past. She is taking her medications routinely. Allergies Allergy/AdvReac Type Severity Reaction Status Date / Time codeine AdvReac Unknown nausea Verified 10/05/22 18:55 hydrocodone AdvReac Unknown N&V Verified 10/05/22 18:55 prednisone AdvReac Unknown Gastrointestinal Verified 10/05/22 18:55 Upset tramadol AdvReac Unknown Nausea Verified 10/05/22 18:55 Home Medications Medication Instructions Recorded Confirmed Type amlodipine 2.5 mg tablet 2.5 mg PO HS 05/27/19 10/05/22 History cholecalciferol (vitamin D3) 50 2,000 unit PO QAM 05/27/19 10/05/22 History mcg (2,000 unit) capsule (Vitamin D3) coQ10 (ubiquinol) 100 mg capsule 100 mg PO QAM 05/27/19 10/05/22 History dicyclomine 10 mg capsule 10 mg PO QID PRN Abdominal Pain 05/27/19 10/05/22 History docusate sodium 100 mg capsule 100 mg PO BID 05/27/19 10/05/22 History (Stool Softener) levothyroxine 25 mcg capsule 25 - 50 mcg PO QAM 05/27/19 10/05/22 History citalopram 10 mg tablet 10 mg PO QAM 12/31/20 10/05/22 History cyanocobalamin (vitamin B-12) 250 250 mcg PO QAM 12/31/20 10/05/22 History mcg tablet losartan 25 mg tablet 25 mg PO DAILY 10/05/22 10/05/22 History ondansetron 4 mg disintegrating 4 mg PO Q6H PRN Nausea 10/05/22 10/05/22 History tablet polyethylene glycol 3350 17 17 g PO DAILY 10/05/22 10/05/22 History gram/dose oral powder (Miralax) simethicone 40 mg/0.6 mL oral See Rx Instructions .Route .COMPLEX 10/05/22 10/05/22 History drops,suspension vitamins A and D 1 cap PO DAILY 10/05/22 10/05/22 History Past Med/Surg History Medical History (Updated 10/05/22 @ 19:14 by Roxy Martin PA-C) Degenerative arthritis of knee, bilateral Depression Dysphagia GERD (gastroesophageal reflux disease) hx-not since lap elvis Hammer toes of both feet no sx. 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 "don't have this anymore since I had the teeth pulled on the bottom." no locking Surgical History H/O foot surgery R/L History of bunionectomy History of carpal tunnel release left History of cataract surgery bilat History of cholecystectomy History of colonoscopy History of dilatation and curettage X MULTIPLE History of esophagogastroduodenoscopy (EGD) X MULTIPLE History of hysterectomy TOTAL History of tooth extraction 2 dental implants bottom Pilonidal cyst REMOVAL Status post laparoscopic Elvis fundoplication Family History Aunt Esophageal cancer Grandmother (Maternal) Diabetes Social History Smoking Status: Former smoker Second Hand Exposure: No; Hx Alcohol Use: Yes Alcohol type: other Hx Substance Use: No Preferred Language: Thai Communication Ability: Effective 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 Beliefs That Will Affect Care: None Current Living Situation: Alone Feels Safe at Home: Yes Assistive Devices: None Review of Systems Review of Systems: Constitutional: No fever, sweats or chills Eyes: No diplopia, no worsening or blurred vision ENT: normal hearing, no trouble swallowing Respiratory: No cough, sputum, dyspnea at rest or on exertion Cardiovascular: As per HPI, no current chest complaints Abdomen: As per HPI Musculoskeletal: No joint pain, calf pain, swelling Neurologic: No weakness, numbness/tingling, or balance problems Psychiatric: No anxiety or depression Skin: No rash or itch Physical Exam Physical Exam: General: awake, alert, no apparent distress Head: Normocephalic, atraumatic ENT: PERRL, EOMI, no pharyngeal exudate, mucous membranes moist Chest: Clear to auscultation, on room air, no adventitious breath sounds Cardiac: Regular rate and rhythm, no murmur, no JVD, normal peripheral pulses, good capillary refill Abdominal: NABS x 4 quadrants, soft, nondistended, nontender to palpation, no rebound or guarding Extremities: Normal inspection, no peripheral edema or erythema, calfs nontender to palpation Psych: Normal mood and affect Neuro: AAO x 3, strength intact bilaterally and rated 5/5, no motor deficits, speech is clear, no peripheral sensory deficits Results & Data Results & Data Vital Signs (Past 12 Hours) Vital Signs Temp Pulse Pulse Resp BP BP Pulse Ox 10/05/22 16:54 10/05/22 16:29 53 L 10/05/22 16:21 55 L 17 133/81 97 10/05/22 16:21 10/05/22 16:14 36.5 C 56 L 21 133/81 97 O2 Del Method O2 Flow Rate 10/05/22 16:54 Room Air 97 10/05/22 16:29 10/05/22 16:21 Room Air 10/05/22 16:21 Room Air 96 10/05/22 16:14 Room Air Laboratory Results 10/05/22 10/05/22 10/05/22 16:56 16:16 16:16 WBC RBC Hgb Hct MCV MCH MCHC RDW Std Deviation RDW Coeff of Tangela Plt Count MPV Immature Gran % (Auto) Neut % (Auto) Lymph % (Auto) Morrill % (Auto) Eos % (Auto) Baso % (Auto) Neut # (Auto) Lymph # (Auto) Morrill # (Auto) Eos # (Auto) Baso # (Auto) Immature Gran # (Auto) PT 10.8 INR 1.0 APTT 25.3 PTT Ratio 0.9 Sodium 139 Potassium 4.1 Chloride 105 Carbon Dioxide 27 Anion Gap 7 BUN 13 Creatinine 0.95 Est Cr Clr Drug Dosing 37.3 Est GFR ( Amer) 64.2 Est GFR (Non-Af Amer) 55.4 BUN/Creatinine Ratio 13.7 Glucose 100 H Calcium 8.7 Total Bilirubin 0.4 AST 18 ALT 13 Alkaline Phosphatase 77 Troponin I High Sens 3.9 Total Protein 6.7 Albumin 3.9 Globulin 2.8 Albumin/Globulin Ratio 1.4 Lipase 11 SARS-CoV-2, RNA, NAAT NEGATIVE 10/05/22 16:16 WBC 6.52 RBC 4.37 Hgb 13.3 Hct 39.6 MCV 90.6 MCH 30.4 MCHC 33.6 RDW Std Deviation 43.2 RDW Coeff of Tangela 13.2 Plt Count 227 MPV 10.0 Immature Gran % (Auto) 0.2 Neut % (Auto) 47.2 Lymph % (Auto) 38.2 Morrill % (Auto) 10.3 Eos % (Auto) 2.9 Baso % (Auto) 1.2 Neut # (Auto) 3.08 Lymph # (Auto) 2.49 Morrill # (Auto) 0.67 H Eos # (Auto) 0.19 Baso # (Auto) 0.08 Immature Gran # (Auto) 0.01 PT INR APTT PTT Ratio Sodium Potassium Chloride Carbon Dioxide Anion Gap BUN Creatinine Est Cr Clr Drug Dosing Est GFR ( Amer) Est GFR (Non-Af Amer) BUN/Creatinine Ratio Glucose Calcium Total Bilirubin AST ALT Alkaline Phosphatase Troponin I High Sens Total Protein Albumin Globulin Albumin/Globulin Ratio Lipase SARS-CoV-2, RNA, NAAT Diagnostic Findings Chest X-Ray 10/05/22 16:31 XR chest 1V portable HISTORY: 82 years-old Female Chest pain, nonspecific acute chest pain COMPARISON: 06/30/2011 TECHNIQUE: AP view of the chest FINDINGS: Cardiac mediastinal and hilar silhouettes are unchanged. No pneumothorax, pleural effusion, airspace consolidation or overt pulmonary edema. Degenerative changes of the shoulders and spine. Healed chronic left humeral fracture deformity. IMPRESSION: No acute process. ACT 112: Negative or not required by law. The above report was generated using voice recognition software. It may contain grammatical, syntax or spelling errors. Electronically signed by: Chris Crook M.D. 10/05/2022 5:30 PM ECG Additional Comments: Outpatient EKG [facility], NSR, possible old anterior infarct, unchanged from previous. Code Status & VTE Plan Code Status Full code-discussed with the patient at bedside Supervising Physician Co-Signing Physician Notes Care coordinated with Veronica Ramsey PA-C. Agree with above note. Patient seen and examined. Please refer to her notes for full details. Vital signs reviewed. Physical exam: General exam: Alert and oriented. Not in acute distress. CVS: S1 and S2 heard, regular rate and rhythm, no murmurs. RS: Clear to auscultation, no wheezing or crackles. ABD: Soft, bowel sounds present, nontender, no distention. CONSERVATION OF RESOURCES COMMISSIONER: Nonfocal. EXT: No edema, no erythema. Labs: Reviewed. Assessment and plan: 82F had chest pain in center of chest radiating to back and left shoulder while she was in cardiology office and was sent in here. Patient has problems with her oesophagus and some chest discomfort while sleeping on one side for last several weeks but this pain was more intense. Her sister couple of weeks. Cardiology wanted to rule out ACS/Takotsubo cardiomyopathy. After nitro and aspirin pain resolved. Currently asymptomatic. Resting comfortably and hemodynamically stable.denies any sob. No cough or fevers. No nausea. Ekg questionable subtle st depressions in leads v3 and v4. troponin negative. Will follow serial ce, echo and cardio consult. Monitor in tele, Other diagnosis and plan of care as per Veronica Ramsey PA-C . Lee baron MD. (1) Chest pain Chest pain type: unspecified Qualified Code(s): R07.9 - Chest pain, unspecified
[2022-10-05] MEDS ORDERED: amLODIPine BESYLATE 5 MG TAB PO SCH (21:00)
[2022-10-05] MEDS ORDERED: SIMETHICONE 80 MG CHEW PO PRN (21:00)
[2022-10-05] MEDS ORDERED: ACETAMINOPHEN 325 MG TAB PO PRN (21:00)
[2022-10-05] MEDS ORDERED: ONDANSETRON INJ 2 MG/ML 2 ML VIAL IV PRN (21:00)
[2022-10-05] MEDS ORDERED: DICYCLOMINE HCL 10 MG CAP PO PRN (21:00)
[2022-10-05] MEDS: HEPARIN SOD 5,000 UNIT/0.5 ML VIAL SQ SCH (22:04)
[2022-10-05] MEDS: DOCUSATE SODIUM 100 MG CAP PO SCH (22:04)
[2022-10-06 05:11] LABS: Hematocrit (blood only) 39.2 % (37.0-47.0); Hemoglobin 13.1 g/dl (12.0-16.0); Mean Corpuscular Hemoglobin 30.5 pg (25.0-34.0); Mean Corpuscular Hgb Conc 33.4 g/dL (32.0-36.0); Mean Corpuscular Volume 91.4 fL (80.0-100.0); Mean Platelet Volume 9.7 fL (9.4-12.4); Platelet Count 208 K/uL (130-400); RDW Coefficient of Variation 13.2 % (11.5-14.5); RDW Standard Deviation 43.9 fL (36.4-46.3); Red Blood Count 4.29 M/uL (4.20-5.40)
[2022-10-06 05:28] LABS: BUN Creatinine Ratio 16.9 (10-20); Calcium 8.4 mg/dl (8.5-10.1); Chol HDL Ratio 4.1 (0-5); Creatinine Clr Calc Pharmacy 42.6 ml/min; Est GFR (African American) 75.6 ml/min; Est GFR (Non-African American) 65.2 ml/min; Magnesium 2.2 mg/dl (1.7-2.4); Potassium 3.6 mmol/L (3.5-5.1)
[2022-10-06] MEDS ORDERED: LEVOTHYROXINE SODIUM 25 MCG TABLET PO SCH (06:30)
--- NOTE | 2022-10-06 07:32 | Cardiology Consultation ---
Date of Consultation October 06, 2022 Assessment & Plan (1) Chest pain: (2) Afib: (3) Dysphagia: (4) GERD (gastroesophageal reflux disease): Plan IMPRESSION: 82 year old female with sudden onset chest pain yesterday in cardiology office. Sent to ED for evaluation- Thus far cardiac workup has been unremarkable. EKG without acute ST/T wave changes. HS trop negative x3. Echo without new WMA or cardiomyopathy. Tele revealing NSR/SB- no PAF seen (carries a history of PAF- declined AC in the past) Low likelihood for ACS given current workup. PLAN: -Recommend starting Enteric coated ASA 81 mg daily during further outpatient workup. -I will arrange for outpatient nuclear stress testing. -Okay to eat from a cardiology standpoint. -Agree with GI referral for possible repeat EGD vs GERD treatment with PPI- will trail patient on Protonix. Case discussed with Dr. Dong- no further recommendations from a cardiology standpoint. Will arrange follow up in cardiology office in 6 weeks following stress testing. History of Present Illness Reason for Consultation: Chest pain Requesting Physician: [facility] Hospital[facility] Attending Physician: Lee Agustin MD History of Present Illness This is a 82-year-old female who initially presented to the cardiology office yesterday for a routine appointment with the undersigned. She was accompanied by her daughter, Chris. At the beginning of the appointment she was feeling well but when she moved from the chair to the exam table she developed a substernal squeezing chest discomfort that radiated to her left arm and back. She became more tachypneic. She was given 4 baby aspirin and 2 sublingual nitroglycerin with slight relief in symptoms. Upon further discussion it was discovered that she has been more short of breath going up and down steps and has also been having atypical chest discomfort symptoms over the last few weeks. She does have a history of esophageal narrowing and follows with Dr. Salomon- has had multiple EGDs and dilation of the esophagus in the past (12/2020 and 12/2021) Daughter stated that she was under a great deal of stress recently as her sister recently 2 weeks ago. EKG showed normal sinus rhythm with a questionable anterior infarct, 60 bpm. EKG was primarily unchanged from priors. She was referred to the emergency department. Lab work has been unremarkable thus far including x3 negative high-sensitivity troponins. EKG without significant changes-this morning sinus bradycardia 55 bpm. Chest x-ray unremarkable Echo: LVEF 55 to 60%, no wall motion abnormality, left atrium mildly dilated, mild TR, grade 1 diastolic dysfunction, no pulmonary hypertension TELE: NSR/SB 50-60s Upon entrance into the room patient resting comfortably in bed. No acute issues over night. Did have 1 episode of chest discomfort early this morning, symptoms were much less severe compared to yesterday and improved spontaneously. Denies shortness of breath. No palpitations. No lightheadedness, nausea, or diaphoresis. PAST MEDICAL HISTORY: 1.Palpitations, secondary to paroxysmal SVT and PVCs 2.H/o PAF, seen per o 04/2021- not on AC a.Recurrent PAF noted on o 02/2022 (burden under 1%) 3.HTN 4.Hypothyroidism 5.MICHELA 6.GERD and esophageal narrowing requiring dilation x2 (12/2020 and 12/2021) 7. IBS 8.History of PE, 06/2011, previously on Coumadin, discontinued in 2013 Allergies Allergy/AdvReac Type Severity Reaction Status Date / Time codeine AdvReac Unknown nausea Verified 10/05/22 18:55 hydrocodone AdvReac Unknown N&V Verified 10/05/22 18:55 prednisone AdvReac Unknown Gastrointestinal Verified 10/05/22 18:55 Upset tramadol AdvReac Unknown Nausea Verified 10/05/22 18:55 Home Medications Medication Instructions Recorded Confirmed Type amlodipine 2.5 mg tablet 2.5 mg PO HS 05/27/19 10/05/22 History cholecalciferol (vitamin D3) 50 2,000 unit PO QAM 05/27/19 10/05/22 History mcg (2,000 unit) capsule (Vitamin D3) coQ10 (ubiquinol) 100 mg capsule 100 mg PO QAM 05/27/19 10/05/22 History dicyclomine 10 mg capsule 10 mg PO QID PRN Abdominal Pain 05/27/19 10/05/22 History docusate sodium 100 mg capsule 100 mg PO BID 05/27/19 10/05/22 History (Stool Softener) levothyroxine 25 mcg capsule 25 - 50 mcg PO QAM 05/27/19 10/05/22 History citalopram 10 mg tablet 10 mg PO QAM 12/31/20 10/05/22 History cyanocobalamin (vitamin B-12) 250 250 mcg PO QAM 12/31/20 10/05/22 History mcg tablet losartan 25 mg tablet 25 mg PO DAILY 10/05/22 10/05/22 History ondansetron 4 mg disintegrating 4 mg PO Q6H PRN Nausea 10/05/22 10/05/22 History tablet polyethylene glycol 3350 17 17 g PO DAILY 10/05/22 10/05/22 History gram/dose oral powder (Miralax) simethicone 40 mg/0.6 mL oral See Rx Instructions .Route .COMPLEX 10/05/22 10/05/22 History drops,suspension vitamins A and D 1 cap PO DAILY 10/05/22 10/05/22 History aspirin 81 mg tablet,delayed 81 mg PO QAM #30 tabs 10/06/22 Rx release pantoprazole 40 mg tablet,delayed 40 mg PO QAM #30 tabs 10/06/22 Rx release Patient History Medical History (Updated 10/06/22 @ 09:27 by ILANA Stanley) Degenerative arthritis of knee, bilateral Depression Dysphagia GERD (gastroesophageal reflux disease) hx-not since lap elvis Hammer toes of both feet no sx. 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 "don't have this anymore since I had the teeth pulled on the bottom." no locking Surgical History H/O foot surgery R/L History of bunionectomy History of carpal tunnel release left History of cataract surgery bilat History of cholecystectomy History of colonoscopy History of dilatation and curettage X MULTIPLE History of esophagogastroduodenoscopy (EGD) X MULTIPLE History of hysterectomy TOTAL History of tooth extraction 2 dental implants bottom Pilonidal cyst REMOVAL Status post laparoscopic Elvis fundoplication Family History Aunt Esophageal cancer Grandmother (Maternal) Diabetes Social History Smoking Status: Former smoker Second Hand Exposure: No; Hx Alcohol Use: Yes Alcohol type: other Hx Substance Use: No Preferred Language: Tamazight Communication Ability: Effective Armored Car Messenger Required: No Beliefs That Will Affect Care: None Current Living Situation: Alone Feels Safe at Home: Yes Assistive Devices: None Review of Systems Review of Systems: All systems reviewed & are unremarkable except as noted in HPI & below Physical Exam Constitutional: WD/WN, vitals as above Neck: normal visual inspection and trachea midline Respiratory: normal respiratory effort, lungs clear to auscultation Cardiovascular: RRR, no murmur, no edema Heart Sounds: normal S1 and normal S2; no murmur Vessels: no JVD Extremities: no edema Chest (Breasts): Chest: normal inspection of chest Gastrointestinal (Abdomen): normal bowel sounds, soft, nontender, no hepatosplenomegaly Skin: no rashes, warm and dry Psychiatric: A+Ox3, euthymic affect Results & Data Vital Signs (Past 12 Hours) Vital Signs Temp Pulse Pulse Resp BP BP Pulse Ox 10/06/22 03:45 36.3 C L 53 L 16 113/70 96 10/05/22 21:00 10/05/22 22:01 69 10/05/22 23:00 36.3 C L 62 16 107/69 95 10/05/22 21:25 57 L 10/05/22 20:45 36.5 C 61 14 177/92 H 97 10/05/22 20:30 147/65 H 10/05/22 20:29 57 L 16 96 10/05/22 20:23 59 L 20 97 10/05/22 20:23 151/90 H 10/05/22 20:00 81 L 10/05/22 19:30 97 10/05/22 20:27 57 L O2 Del Method 10/06/22 03:45 Room Air 10/05/22 21:00 Room Air 10/05/22 22:01 10/05/22 23:00 Room Air 10/05/22 21:25 10/05/22 20:45 Room Air 10/05/22 20:30 10/05/22 20:29 10/05/22 20:23 10/05/22 20:23 10/05/22 20:00 10/05/22 19:30 10/05/22 20:27 Laboratory Results Cardiac Enzymes 03/10/05/22 10/06/22 Range/Units 16:16 22:48 04:31 AST 18 (13-39) U/L Troponin I High Sens 3.9 4.1 5.1 (0-14) pg/ml Coagulation 10/05/22 Range/Units 16:16 PT 10.8 (9.0-12.0) Seconds APTT 25.3 (21.0-31.0) Seconds Lipids 10/06/22 Range/Units 04:31 Triglycerides 118 (0-150) mg/dl Cholesterol 159 (0-200) mg/dl HDL Cholesterol 39 mg/dl Cholesterol/HDL Ratio 4.1 (0-5) CBC 10/05/22 10/06/22 Range/Units 16:16 04:31 WBC 6.52 6.00 (4.8-10.8) K/ul RBC 4.37 4.29 (4.20-5.40) M/uL Hgb 13.3 13.1 (12.0-16.0) g/dl Hct 39.6 39.2 (37.0-47.0) % Plt Count 227 208 (130-400) K/uL Neut # (Auto) 3.08 (1.40-6.50) K/uL Lymph # (Auto) 2.49 (1.2-3.4) K/uL Clarke # (Auto) 0.67 H (0.11-0.59) K/uL Eos # (Auto) 0.19 (0-0.50) K/uL Baso # (Auto) 0.08 (0-0.2) K/uL Comprehensive Metabolic Panel 10/05/22 10/06/22 Range/Units 16:16 04:31 Sodium 139 142 (136-145) mmol/L Potassium 4.1 3.6 (3.5-5.1) mmol/L Chloride 105 108 H (98-107) mmol/L Carbon Dioxide 27 27 (21-32) mmol/L BUN 13 14 (6-23) mg/dl Creatinine 0.95 0.83 (0.6-1.2) mg/dl Glucose 100 H 126 H (70-99(Fasting)) mg/dl Calcium 8.7 8.4 L (8.5-10.1) mg/dl AST 18 (13-39) U/L ALT 13 (7-52) U/L Alkaline Phosphatase 77 (34-104) U/L Total Protein 6.7 (6.0-8.3) gm/dl Albumin 3.9 (3.4-5.0) gm/dl Intake and Output 10/05/22 10/06/22 10/06/22 22:59 06:59 14:59 Intake Total 240 / 240 Balance 240 / 240 Intake: Oral 240 / 240 Other: Weight 63 kg 63.3 kg 63.3 kg Weight Measurement Method [facility] Patient Weight 10/07/22 06:59 Weight 63.3 kg (1) Chest pain Chest pain type: unspecified Qualified Code(s): R07.9 - Chest pain, unspecified (2) Afib Atrial fibrillation type: paroxysmal Qualified Code(s): I48.0 - Paroxysmal atrial fibrillation
[2022-10-06 07:46] LABS: Estimated Average Glucose 111 mg/dl; Hemoglobin A1C 5.5 % (4.5-5.6)
[2022-10-06] MEDS: DOCUSATE SODIUM 100 MG CAP PO SCH (07:59)
[2022-10-06] MEDS: HEPARIN SOD 5,000 UNIT/0.5 ML VIAL SQ SCH (08:02)
[2022-10-06] MEDS ORDERED: VITAMINS A AND D PO SCH (09:00)
[2022-10-06] MEDS ORDERED: NON-FORMULARY MEDICATION (Coq10 (Ubiquinol) 100 mg Capsule) PO SCH (09:00)
[2022-10-06] MEDS ORDERED: CITALOPRAM 20 MG TAB PO SCH (09:00)
[2022-10-06] MEDS ORDERED: CYANOCOBALAMIN (B-12) 500 MCG TABLET PO SCH (09:00)
[2022-10-06] MEDS ORDERED: CHOLECALCIFEROL 1,000 UNITS 25 MCG TAB PO SCH (09:00)
[2022-10-06] MEDS ORDERED: LOSARTAN POTASSIUM 25 MG TAB PO SCH (09:00)
[2022-10-06] MEDS ORDERED: ASPIRIN 81 MG ECTAB PO SCH (09:30)
--- NOTE | 2022-10-06 12:17 | Gastrointestinal Consultation ---
Date of Consultation October 06, 2022 Assessment & Plan (1) GERD (gastroesophageal reflux disease): (2) Esophageal dysmotility: (symptoms of) Plan 1. Treat GERD/esophageal dysmotility with PPI. 2. Our office will contact the patient to arrange outpatient EGD. Message sent to Dr. Dariel Salomon who follows this patient. I reviewed prior outpatient recommendations with patient including soft foods, slippery diet, chew all foods thoroughly, krishan each swallow with a small amount of water. 3. GI will sign off. Please notify us of new/worsening GI issues. Supervising Physician Co-Signing Physician Notes I performed a history and physical examination of the patient today, including specifically on physical exam - soft abdomen. I have discussed the patient's management with the advanced practitioner. Please refer to the nurse practitioner's note for the documented findings and plan of care. No abdominal pain now. Dysphagia is chronic and had multiple endoscopic dilations in the past. Plan for OP EGD. Recall GI if needed. History of Present Illness Reason for Consultation: Abd pain, diarrhea, constipation, esophagus narrow Requesting Physician: Irena Martin PA-C Attending Physician: Dominick Dennis MD History of Present Illness Ms. Catarina Mclaughlin is an 82-year-old female patient of Dr. Erica Dong w a hx of HTN, Hyperlipidemia, GERD. She presented to the ED yesterday for CP. GI was consulted for dysphagia. She denies any abdominal pain. She reports that this morning whenever she was trying to eat her breakfast, and felt like food got lodged in the middle of her chest, at that time she drank "a little too much liquid," and regurgitated food and liquid. She reports that this is a symptom that has been ongoing for years, that she has to eat slippery foods, chew thoroughly, wait until each swallow passes through her chest. She has had EGD previously for dysphagia without any findings to explain this. She also reports that she has had esophageal motility testing previously but does not recall the results (I am unable to find this in her OP records). She denies any typical symptoms of reflux but does have chest discomfort and burning when she has episodes of feeling like her food gets stuck in her chest. Most recent EGD for dysphagia by Dr. Salomon in February 2022: Middle and lower esophagus were moderately torturous. Dilated. Elvis fundoplication wrap intact. Name size 12 mm submucosal mass in the gastric fundus (seen previously and being followed yearly with EUS by Dr. Salomon). Allergies Allergy/AdvReac Type Severity Reaction Status Date / Time codeine AdvReac Unknown nausea Verified 10/05/22 18:55 hydrocodone AdvReac Unknown N&V Verified 10/05/22 18:55 prednisone AdvReac Unknown Gastrointestinal Verified 10/05/22 18:55 Upset tramadol AdvReac Unknown Nausea Verified 10/05/22 18:55 Home Medications Medication Instructions Recorded Confirmed Type amlodipine 2.5 mg tablet 2.5 mg PO HS 05/27/19 10/05/22 History cholecalciferol (vitamin D3) 50 2,000 unit PO QAM 05/27/19 10/05/22 History mcg (2,000 unit) capsule (Vitamin D3) coQ10 (ubiquinol) 100 mg capsule 100 mg PO QAM 05/27/19 10/05/22 History dicyclomine 10 mg capsule 10 mg PO QID PRN Abdominal Pain 05/27/19 10/05/22 History docusate sodium 100 mg capsule 100 mg PO BID 05/27/19 10/05/22 History (Stool Softener) levothyroxine 25 mcg capsule 25 - 50 mcg PO QAM 05/27/19 10/05/22 History citalopram 10 mg tablet 10 mg PO QAM 12/31/20 10/05/22 History cyanocobalamin (vitamin B-12) 250 250 mcg PO QAM 12/31/20 10/05/22 History mcg tablet losartan 25 mg tablet 25 mg PO DAILY 10/05/22 10/05/22 History ondansetron 4 mg disintegrating 4 mg PO Q6H PRN Nausea 10/05/22 10/05/22 History tablet polyethylene glycol 3350 17 17 g PO DAILY 10/05/22 10/05/22 History gram/dose oral powder (Miralax) simethicone 40 mg/0.6 mL oral See Rx Instructions .Route .COMPLEX 10/05/22 10/05/22 History drops,suspension vitamins A and D 1 cap PO DAILY 10/05/22 10/05/22 History aspirin 81 mg tablet,delayed 81 mg PO QAM #30 tabs 10/06/22 Rx release pantoprazole 40 mg tablet,delayed 40 mg PO QAM #30 tabs 10/06/22 Rx release Patient History Medical History (Updated 10/06/22 @ 12:26 by ILANA Boss) Degenerative arthritis of knee, bilateral Depression Dysphagia GERD (gastroesophageal reflux disease) hx-not since lap elvis Hammer toes of both feet no sx. 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 "don't have this anymore since I had the teeth pulled on the bottom." no locking Surgical History H/O foot surgery R/L History of bunionectomy History of carpal tunnel release left History of cataract surgery bilat History of cholecystectomy History of colonoscopy History of dilatation and curettage X MULTIPLE History of esophagogastroduodenoscopy (EGD) X MULTIPLE History of hysterectomy TOTAL History of tooth extraction 2 dental implants bottom Pilonidal cyst REMOVAL Status post laparoscopic Elvis fundoplication Family History Aunt Esophageal cancer Grandmother (Maternal) Diabetes Social History Smoking Status: Former smoker Second Hand Exposure: No; Hx Alcohol Use: Yes Alcohol type: other Hx Substance Use: No Preferred Language: Italian Communication Ability: Effective Patient Care Provider Required: No Beliefs That Will Affect Care: None Current Living Situation: Alone Feels Safe at Home: Yes Assistive Devices: None Review of Systems Review of Systems: ROS: Gen: Denies weakness, fevers, weight loss Eyes: No eye redness, or pain, no recent vision changes Resp: No SOB, no cough Cardio: CP as per HPI. No palpitations/irregular beats GI: As per HPI : Denies pain on urination Skin: No jaundice, itching or new rashes Physical Exam Constitutional: WD/WN, vitals as above Eyes: PERRL, conjunctivae normal, anicteric sclerae ENMT: external ear and nose normal, oropharynx normal Neck: trachea midline, no thyromegaly Respiratory: normal respiratory effort, lungs clear to auscultation Cardiovascular: RRR, no murmur, no edema Gastrointestinal (Abdomen): normal bowel sounds, soft, nontender, no hepatosplenomegaly Musculoskeletal: no cyanosis or clubbing, extremities motor strength 5/5 Skin: no rashes, warm and dry Neurologic: PERRL, EOMI, accommodation nl, no face palsy, no dysarthria Psychiatric: A+Ox3, euthymic affect Lymphatic: no cervical or axillary lymphadenopathy Results & Data Vital Signs (Past 12 Hours) Vital Signs Temp Pulse Resp BP Pulse Ox O2 Del Method 10/06/22 11:29 36.6 C 55 L 18 93/57 L 95 10/06/22 11:28 36.8 C 78 18 120/77 95 Room Air 10/06/22 07:44 36.6 C 55 L 18 93/57 L 95 Room Air 10/06/22 03:45 36.3 C L 53 L 16 113/70 96 Room Air Laboratory Results LFTs and lipase normal. WBC 6, Hb 13.1, HCT 39.2, PLT S29, NA 142, K3.6, CL 27, CO2 7, BUN 14, CR 0.83 Diagnostic Findings CXR: No acute process.
--- NOTE | 2022-10-06 15:56 | Discharge Summary ---
Date of Service October 06, 2022 Admission HPI Per Admitting Provider This is an 82-year-old female with PMHx of paroxysmal A-fib, PSVT, HTN, HLD, hypothyroidism, CKD stage III, recent flux esophagitis who presented to her outpatient [facility]ove[facility] office earlier today for routine follow-up. At the beginning of her appointment she was doing well from a cardiac standpoint. When she moved from chair to bedside exam table she experienced acute left-sided chest pain with radiation into her back and to the left arm. There she was given 2 nitros and 4 baby aspirin which improved her pain. Her blood pressure was stable at that point in time and remained so since being here in the ER. Of note her sister 2 weeks ago and there is some concern for Takotsubo cardiomyopathy versus ACS therefore she was sent over to the ER for further evaluation. Her daughter is present with her, Chris, and helps support the history. She also notes that since staying with her mother for the past 2 weeks she notices issues with her choking on food, and patient feeling as if food is getting stuck in her esophagus. She has previously followed with GI, Dr. Salomon and had EGDs with dilations 2 years in a row with, December 2020 and December 2021. Patient is also experiencing intermittent diarrhea and constipation alternating along with abdominal pain. Currently she does not have any abdominal plaints as today was "a good day". She admits to having a history of IBS in the past. She is taking her medications routinely. Admission Exam Per Admitting Provider General: awake, alert, no apparent distress Head: Normocephalic, atraumatic ENT: PERRL, EOMI, no pharyngeal exudate, mucous membranes moist Chest: Clear to auscultation, on room air, no adventitious breath sounds Cardiac: Regular rate and rhythm, no murmur, no JVD, normal peripheral pulses, good capillary refill Abdominal: NABS x 4 quadrants, soft, nondistended, nontender to palpation, no rebound or guarding Extremities: Normal inspection, no peripheral edema or erythema, calfs nontender to palpation Psych: Normal mood and affect Neuro: AAO x 3, strength intact bilaterally and rated 5/5, no motor deficits, speech is clear, no peripheral sensory deficits Principal Diagnosis Chest pain, ACS rule out. Likely secondary to GERD Discharge Exam Constitutional: WD/WN, vitals as above, NAD, sitting up in bed, pleasant, conversing easily Respiratory: normal respiratory effort, lungs clear to auscultation, no wheeze, rales, rhonchi. Normal insp/exp effort, no accessory muscle use Cardiovascular: RRR, no murmur, no edema Vessels: no JVD or carotid bruit Chest: normal inspection of chest Abdomen: normal bowel sounds, soft, nontender, no hepatosplenomegaly Musculoskeletal: no cyanosis or clubbing, extremities motor strength 5/5 Skin: no rashes, warm and dry normal turgor Neurologic: PERRL, EOMI, accommodation nl, no face palsy, no dysarthria CN's II- XI intact bilaterally and moves all extremities Psychiatric: A+Ox3, euthymic affect Lymphatic: no cervical or axillary lymphadenopathy : deferred Discharge Data Allergies Allergy/AdvReac Type Severity Reaction Status Date / Time codeine AdvReac Unknown nausea Verified 10/05/22 18:55 hydrocodone AdvReac Unknown N&V Verified 10/05/22 18:55 prednisone AdvReac Unknown Gastrointestinal Verified 10/05/22 18:55 Upset tramadol AdvReac Unknown Nausea Verified 10/05/22 18:55 Consultations 10/05/22 18:36 ED Decision to Admit Stat 10/05/22 21:00 Consult Cardiology Routine Consult Gastroenterology Routine Hospital Course (1) Chest pain: (2) Abnormal EKG: (3) Hypertension: (4) Hyperlipidemia: (5) GERD (gastroesophageal reflux disease): Plan Patient is a 82-year-old female with past medical history of paroxysmal A-fib, hypertension, hyperlipidemia, CKD stage III, GERD presents from outpatient cardiology office after acute onset of left-sided chest pain radiating to her back and left arm. She was given 2 nitro and 4 baby aspirin which improved her pain. EKG on admission showed sinus bradycardia with no significant ST or T wave changes. High sensitive troponin was negative. Patient was evaluated by cardiology. Echocardiogram was done which showed EF of 55 to 60%; no significant wall motion abnormality reported. Patient was recommended to be started on aspirin for primary prevention by cardiology. Patient also reported history of dysphagia. Her recent EGD was in February 2022; was found to have middle and lower esophagus moderately tortuous. GI was consulted. They recommended treatment for PPI with Protonix. Patient to see GI as outpatient for EGD. Total Time Total Time Spent Total Time Spent (In Minutes): 35 Total Time Includes: Examination of the Patient, Discharge Planning, Medication Reconciliation, Communication With Other Providers and Other Discharge Plan Discharge Items Patient Disposition: Home - Self-Care Reason For Visit: CHEST PAIN Discharge Diagnosis: Chest pain, ACS ruled out. Activity: Resume your previous activity Non-emergency contact: Primary Care Provider Call non-emergency contact if: you have any medication questions and your symptoms worsen Follow-up/Referrals: Erica Dong DO [Primary Care Provider] - (Date & Time 10/12/2022 2:00 PM Provider Michi Underwood MD Department [facility] ) Diet: Regular Addtl Attending Provider Instructions: You were admitted to the hospital with chest pain. The work-up during the hospital and did not show sign of any heart attack. Echocardiogram was done which showed good ejection fraction of 55 to 60%. Cardiology evaluated you during the hospitalization; they recommend you to be started on aspirin 81 mg once daily. Protonix 40 mg before breakfast is also prescribed for possible Reflux. Pending Studies at Discharge: No Stand-Alone Forms: My [facility] [place], Smoking Cessation Medications and DC Order Prescriptions: New aspirin 81 mg Tablet,Delayed Release (Dr/Ec) 81 mg PO QAM Qty: 30 0RF pantoprazole 40 mg Tablet,Delayed Release (Dr/Ec) 40 mg PO QAM Qty: 30 0RF Continued cholecalciferol (vitamin D3) [Vitamin D3] 2,000 unit Capsule 2,000 unit PO QAM levothyroxine 25 mcg Capsule 25 - 50 mcg PO QAM Rx Instructions: ALTERNATES 1 TAB AND 2 TABS EACH AM coQ10 (ubiquinol) 100 mg Capsule 100 mg PO QAM amlodipine 2.5 mg Tablet 2.5 mg PO HS dicyclomine 10 mg Capsule 10 mg PO QID PRN (Reason: Abdominal Pain) docusate sodium [Stool Softener] 100 mg Capsule 100 mg PO BID citalopram 10 mg Tablet 10 mg PO QAM cyanocobalamin (vitamin B-12) 250 mcg Tablet 250 mcg PO QAM losartan 25 mg tablet 25 mg PO DAILY polyethylene glycol 3350 [Miralax] 17 gram/dose Powder 17 g PO DAILY ondansetron 4 mg Tablet,Disintegrating 4 mg PO Q6H PRN (Reason: Nausea) simethicone 40 mg/0.6 mL Drops,Suspension See Rx Instructions .ROUTE .COMPLEX Rx Instructions: take 1.2 ml by mouth every 6 hours as needed for gas vitamins A and D Capsule 1 cap PO DAILY Rx Instructions: administer with a meal Discharge Orders: Discharge Order (Routine); Ordered 10/06/22 Ordered By: Dominick Dennis Admission Data Admit Date/Time: 10/05/22 19:21 Attending Provider: Dominick Dennis Admit Provider: Lee Agustin Primary Care Provider: Erica Dong Other Providers: Isma Oreilly ; Rom Dong Wilmot C. Jr Other Interventions: Discharge Summary Assessment (RN) Last Done: 10/06/22 11:29
--- NOTE | 2022-10-07 01:45 | Electrocardiogram Report ---
Test Reason : Blood Pressure : / mmHG Vent. Rate : 056 BPM Atrial Rate : 056 BPM P-R Int : 146 ms QRS Dur : 080 ms QT Int : 424 ms P-R-T Axes : 072 020 046 degrees QTc Int : 409 ms Sinus bradycardia Otherwise normal ECG When compared with ECG of 04-FEB-2020 11:58, No significant change was found Confirmed by Arnaldo Wilson ([id number]) on 10/07/2022 1:44:46 AM Referred By: REFERRED SELF Confirmed By:Arnaldo Wilson
--- NOTE | 2022-10-07 02:06 | Electrocardiogram Report ---
Test Reason : Blood Pressure : / mmHG Vent. Rate : 055 BPM Atrial Rate : 055 BPM P-R Int : 152 ms QRS Dur : 076 ms QT Int : 448 ms P-R-T Axes : 059 023 020 degrees QTc Int : 428 ms Sinus bradycardia Low voltage QRS Nonspecific ST and T wave abnormality When compared with ECG of 05-OCT-2022 16:14, Nonspecific T wave abnormality is now Present Confirmed by Arnaldo Wilson ([id number]) on 10/07/2022 2:06:01 AM Referred By: REFERRED SELF Confirmed By:Arnaldo Wilson
[2022-10-07] MEDS ORDERED: LEVOTHYROXINE SODIUM 50 MCG TABLET PO SCH (06:30)
[2022-10-07] MEDS ORDERED: PANTOprazole 40 MG TAB PO SCH (09:00)
== END 2022-10-06 12:20 | disposition home or self-care (01) ==
LOC: 4W 16:09 → ED 16:09 → SUATTDRO 19:21 → 4W 20:29